=== PATIENT | female | born 1995 | race Asian ===

== ENCOUNTER 2016-10-03 16:16 | Emergency (ER) | payer OTHER ==
[~2016-10-03] VITALS: Wt 58.0 kg
[2016-10-03] MEDS ORDERED: SOD CHLORIDE 0.9% 1,000 ML IV STA (16:32)
[2016-10-03 16:53] LABS: ADD SCAN DIFF NO
[2016-10-03 16:55] LABS: HEMATOCRIT 42.6 % (37.0-47.0); HEMOGLOBIN 14.1 g/dl (12.0-16.0); MEAN CORPUSCULAR HGB CONC 33.1 g/dl (32.0-37.0); MEAN CORPUSCULAR VOLUME 93.6 fl (82.0-101.0); MEAN PLATELET VOLUME 9.8 fl (7.4-10.4); PLATELET COUNT 219 10^3/UL (140-415); RED BLOOD COUNT 4.55 10^6/ul (4.20-5.40); RED CELL DISTRIBUTION WIDTH 12.2 % (11.5-14.5); WHITE BLOOD COUNT 6.6 10^3/ul (4.8-10.8)
[2016-10-03 17:05] LABS: CHLORIDE 104 mmol/L (97-110); SODIUM 141 mmol/L (135-144)
[2016-10-03 17:09] LABS: ANION GAP 16 (8-16); BLOOD UREA NITROGEN 14 mg/dl (7-20); CALCIUM 9.1 mg/dl (8.4-10.2); CARBON DIOXIDE 25 mmol/L (21-31); GLUCOSE 92 mg/dl (70-220)
--- NOTE | 2016-10-03 17:12 | RADRPT ---
PROCEDURE: Chest x-ray CLINICAL INDICATION: Chest pain TECHNIQUE: Chest single view COMPARISON: None FINDINGS: The heart is normal in size. The pulmonary vessels are normal in caliber. The lungs are clear. Th e costophrenic angles are sharp. The visualized bony thorax is unremarkable. IMPRESSION: No acute cardiopulmonary disease. RPTAT: HH .Yayo Joshua MD, Date Time Electronically viewed and signed by .Yayo Joshua MD, MD on 10/03/2016 17:11 .W/
[2016-10-03 17:32] LABS: TROPONIN-I < 0.012 ng/ml (0.00-0.12)
[2016-10-03 17:39] LABS: BASOPHIL # 0.1 10^3/ul (0.0-0.1); EOSINOPHILS # 0.6 10^3/ul (0.0-0.5); MONOCYTE # 0.5 10^3/ul (0.3-0.9); NEUTROPHIL # 3.5 10^3/ul (1.6-7.5)
[2016-10-03 17:40] LABS: ANISOCYTOSIS 1+
[2016-10-03 17:41] LABS: PLATELET ESTIMATE PLT APPEAR ADEQUATE
[2016-10-03 18:02] LABS: INR 0.96; PROTIME 12.8 Sec (12.2-14.2)
[2016-10-03 18:03] LABS: PARTIAL THROMBOPLASTIN TIME 63.7 Sec (25.0-35.0)
[2016-10-03 18:05] LABS: D-DIMER 270.7 ng/ml (<460)
[2016-10-03] MEDS ORDERED: IBUP-1542 PO (18:16)
--- NOTE | 2016-10-03 18:17 | ERD ---
ER Documentation Chief Complaint Date/Time DATE: 10/03/16 TIME: 18:17 Chief Complaint RIGHT SIDE CHEST WALL PAIN WITH NO RECENT TRAUMA. NO SOB . NO N/V HPI Patient is a 21-year-old female with no medical problems who presents with chest pain. The patient started with right-sided chest pain at 4 AM. She recently returned last night from [place] after a 13 hour flight. Her pain she described as a 9 out of 10 pain. It went away but came back this morning at 7 out of 10. She has had no treatment as of yet. She does not currently have a primary doctor. Upon review of old medical records this is the patient's first visit to the emergency department. ROS All systems reviewed and are negative except as per history of present illness. Medications Home Meds Active Scripts Ibuprofen* (Motrin*) 600 Mg Tab, 600 MG PO Q6H Y for PAIN AND OR ELEVATED TEMP, #30 TAB Prov:LUZ BANSAL MD 10/03/16 Allergies Allergies: Coded Allergies: No Known Allergy (Unverified , 10/03/16) PMhx/Soc Medical and Surgical Hx: pt denies Medical Hx, pt denies Surgical Hx Hx Alcohol Use: No Hx Substance Use: No Hx Tobacco Use: No Smoking Status: Never smoker FmHx Family History: No coronary disease, No diabetes Physical Exam Vitals Vital Signs Date Time Temp Pulse Resp B/P Pulse Ox O2 Delivery O2 Flow Rate FiO2 10/03/16 16:21 98.6 86 20 118/80 97 Physical Exam Const: No acute distress Head: Atraumatic Eyes: Normal Conjunctiva ENT: Normal External Ears, Nose and Mouth. Neck: Full range of motion..~ No meningismus. Resp: Clear to auscultation bilaterally Cardio: Regular rate and rhythm, no murmurs Abd: Soft, non tender, non distended. Normal bowel sounds Skin: No petechiae or rashes Back: No midline or flank tenderness Ext: No cyanosis, or edema Neur: Awake and alert Psych: Normal Mood and Affect Result Diagram: 10/03/16 1643 10/03/16 1643 Results 24 hrs Laboratory Tests Test 10/03/16 16:43 Activated Partial Thromboplast Time 63.7Sec Anion Gap 16 Anisocytosis 1+ Basophils # 0.110^3/ul Basophils % 1.0% Blood Urea Nitrogen 14mg/dl Calcium Level 9.1mg/dl Carbon Dioxide Level 25mmol/L Chloride Level 104mmol/L Creatinine 0.60mg/dl D-Dimer 270.70ng/ml D-Dimer Comment Eosinophils # 0.610^3/ul Eosinophils % 9.0% Glucose Level 92mg/dl Hematocrit 42.6% Hemoglobin 14.1g/dl INR International Normalized Ratio 0.96 Lymphocytes # 2.010^3/ul Lymphocytes % 30.0% Mean Corpuscular Hemoglobin 31.0pg Mean Corpuscular Hemoglobin Concent 33.1g/dl Mean Corpuscular Volume 93.6fl Mean Platelet Volume 9.8fl Monocytes # 0.510^3/ul Monocytes % 7.0% Neutrophils # 3.510^3/ul Neutrophils % 53.0% Nucleated Red Blood Cells # 10^3/ul Nucleated Red Blood Cells % /100WBC Platelet Count 71953^3/UL Platelet Estimate PLT APPEAR ADEQUATE Potassium Level 4.0mmol/L Prothrombin Time 12.8Sec Prothrombin Time Ratio 1.0 Red Blood Count 4.5510^6/ul Red Cell Distribution Width 12.2% Sodium Level 141mmol/L Troponin I < 0.012ng/ml White Blood Count 6.610^3/ul Current Medications Medications (Trade) Dose Ordered Sig/Rajwinder Route PRN Reason Start Time Stop Time Status Last Admin Dose Admin Sodium Chloride (NS) 1,000 ml @ 1,000 mls/hr Q1H STAT IV 10/03/16 16:32 10/03/16 17:31 DC Procedures/MDM EKG read by me: Rate/Rhythm: Regular rate and rhythm at a rate of 78 Intervals: Normal Impression: No evidence of ischemia or arrhythmia Chest X-ray 1V Interpreted by me: Soft Tissue: No acute abnormalities Bones: No acute abnormalities Mediastinum/Cardiac Silhouette/Lungs: No acute abnormalities Patient is a 21-year-old female presents with chest pain. EKG and chest x-ray were normal. Troponin and d-dimer were negative. At this point I doubt acute coronary syndrome, pneumonia, pneumothorax, pulmonary embolism, or aortic dissection. I offered ibuprofen but she refused. The patient can return for any worsening symptoms. She will be given a prescription for ibuprofen. She should follow-up with a primary doctor within 24-48 hours for reevaluation. Departure Diagnosis: Primary Impression: Chest pain Chest pain type: unspecified Qualified Code: R07.9 - Chest pain, unspecified type Condition: Fair Patient Instructions: Chest Pain, Uncertain Cause Referrals: Your doctor Additional Instructions: Call your primary care doctor TOMORROW for an appointment during the next 1-2 days.See the doctor sooner or return here if your condition worsens before your appointment time. LUZ BANSAL MD Oct 03, 2016 18:17
[2016-10-03 18:40] VITALS: BP 119/72; PULSE 68; RESP 16; TEMP 98.6
== END 2016-10-03 18:40 | disposition home or self-care (01) ==
LOC: E/R 16:16
DX: R07.89 Other chest pain (principal)
CPT/HCPCS: 36415; 71010; 80048; 84484; 85025; 85378; 85610; 85730; 93005; 99285; J7030